=== PATIENT | female | born 1980 | race Caucasian/White ===

== ENCOUNTER 2023-05-30 18:51 | Emergency (ER) | payer OTHER, SELFPAY ==
--- NOTE | ~2023-05-30 | XR_ITS ---
Right Humerus Technique: AP and lateral views were obtained. Clinical History: Trauma Findings: No fracture or dislocation is seen. Osseous alignment is anatomic. Visualized joint spaces are grossly preserved. Soft tissues are unremarkable. Impression: Unremarkable examination. No fracture or dislocation. Reviewed, dictated and finalized at location . N CONTROL ELECTRONIC TECHNICIAN Impression: Unremarkable examination. No fracture or dislocation.
--- NOTE | ~2023-05-30 | XR_ITS ---
AP and oblique views of the right ribs, and PA and lateral chest radiographs Clinical History: Pain Findings: No rib fracture is seen. Osseous alignment is anatomic. Lungs are clear, without focal cons olidation or pleural effusion. Cardiomediastinal contour is within normal limits. Soft tissues are un remarkable. Impression: No rib fracture is seen. Reviewed, dictated and finalized at [facility]. N FOREMAN/SUPERINTENDANT Impression: No rib fracture is seen.
--- NOTE | ~2023-05-30 | XR_ITS ---
Right Shoulder Technique: AP and scapular Y views were obtained. Clinical History: Pain Findings: No fracture or dislocation is seen. Osseous alignment is anatomic. The glenohumeral and acr omioclavicular joint spaces are preserved. Soft tissues are unremarkable. Impression: Unremarkable right shoulder radiographs. Reviewed, dictated and finalized at [facility]. NTIST PROPAGATOR Impression: Unremarkable right shoulder radiographs.
--- NOTE | ~2023-05-30 | XR_ITS ---
Right elbow Technique: AP, oblique, and lateral views were obtained. Clinical History: Pain Findings: No acute fracture or dislocation is seen. Osseous alignment is anatomic. Joint spaces are p reserved. There is no displacement of the fat pads, and soft tissues are unremarkable. Impression: Unremarkable radiographs. Reviewed, dictated and finalized at location . HOLDER Impression: Unremarkable radiographs.
--- NOTE | ~2023-05-30 | XR_ITS ---
Right scapula Technique: AP and lateral views were obtained. Clinical History: Pain Findings: No fracture or dislocation is seen. Osseous alignment is anatomic. Visualized joint spaces are preserved. Soft tissues are unremarkable. Impression: No significant abnormality seen. Reviewed, dictated and finalized at location . SEWER Impression: No significant abnormality seen.
[2023-05-30 19:16] VITALS: BP 130/66; PULSE 65; RESP 20; TEMP 36.7; O2SAT 98
[2023-05-31 01:25] VITALS: BP 157/80; PULSE 62; RESP 14; TEMP 36.6; O2SAT 100
--- NOTE | 2023-05-31 02:13 | ED.UPPEXIN ---
HPI - Extremity Injury (Upper) General Chief Complaint: Extremity Injury, Upper Stated Complaint: RT shoulder injury Time Seen by Provider: 05/31/23 01:36 Source: patient Limitations: no limitations History of Present Illness HPI narrative: Patient is a 42-year-old female presents to the emergency department complaining of fall. Patient states around 3:00 p.m. today she is on metal steps and tripped fell backwards down the steps and bottom step with her right shoulder blade and has since been having pain in that area. Patient admits to being ambulatory since the event without any difficulty. Patient denies loss of consciousness or use of blood thinners or hitting her head. Patient states the most pain is in her right shoulder blade and and feels like a pressure and sharp sensation it radiates to her right shoulder and right upper arm. Patient denies history of injury to this area. Patient took a Tylenol for the pain. Patient denies pain anywhere else. Patient denies difficulty breathing, abdominal pain, vomiting, urinary incontinence stool incontinence, numbness, weakness, headache, paresthesias for alcohol use, illicit drug use. Patient states that the pain is worse when she tries to use her right shoulder. Patient states the pain is better when she is lying on her stomach. Related Data Allergies Allergy/AdvReac Type Severity Reaction Status Date / Time No Known Allergies Allergy Verified 05/30/23 19:26 Review of Systems Review of Systems: A 10 system review of systems was completed on the patient and is negative except for what is stated in the HPI. Nursing and ancillary documentation was reviewed. PMFSH Comments At time of signature, I have reviewed and agree with nursing past medical, surgical, social and family history unless otherwise noted. Please see the nursing chart for further information. There is no relevant family history pertinent to the presenting complaint. Exam Narrative: CONST: No acute distress. Well nourished. HENMT: Head is normocephalic and atraumatic. Moist mucous membranes. No posterior oropharynx erythema. EYES: No conjunctival icterus, injection, or pallor. PERRL. NECK: No meningeal signs. RESP: Able to speak in full sentences. Normal respiratory effort. CTAB. CARDIO: Regular rate. Regular rhythm. 2+ DP and radial pulses bilaterally. GI: Nondistended. No tenderness to palpation. Soft. : No CVA tenderness to palpation. SKIN: No rashes or lesions noted on exposed skin. NEURO: Oriented x3. Moves all extremities. EXTREM/MSK/BACK: No pedal edema. No midline vertebral tenderness to palpation or step-offs. Mild tenderness to palpation of the right scapula without overlying skin changes. Patient is able to flex and extend her right elbow and range of motion is intact of the right hand with glass vial bending conveyor feeder strength equal bilaterally in the upper extremities. Patient is not willing to range her right shoulder due to pain and causes in her shoulder blade. Chest wall is without palpable deformities or crepitus. No palpable deformities of the extremities. PSYCH: Normal affect. Course Vital Signs Vital signs: Vital Signs Temperature 98.0 F 05/30/23 19:16 Pulse Rate 65 05/30/23 19:16 Respiratory Rate 20 05/30/23 19:16 Blood Pressure 130/66 05/30/23 19:16 Pulse Oximetry 98 05/30/23 19:16 Oxygen Delivery Room Air 05/30/23 19:16 Temperature 97.5 F L 05/31/23 03:59 Pulse Rate 88 05/31/23 03:59 Respiratory Rate 16 05/31/23 03:59 Blood Pressure 138/77 05/31/23 03:59 Pulse Oximetry 99 05/31/23 03:59 Oxygen Delivery Room Air 05/30/23 19:16 MDM - Extremity Injury (Upper) MDM Narrative Medical decision making narrative: Patient presents with the above complaint. Initial vitals are remarkable for no significant abnormalities. Physical examination as noted above. Plan discussed: X-rays of the right shoulder, right elbow, ribs, scapula, morphine 4 mg IV
[2023-05-31] MEDS: MORPHINE SULFATE (*CRX) 4 MG/ML INJ IV PUSH (02:18)
[2023-05-31] MEDS: ONDANSETRON INJ 4 MG/2 ML VIAL IV PUSH (03:10)
[2023-05-31 03:59] VITALS: BP 138/77; PULSE 88; RESP 16; TEMP 36.4; O2SAT 99
== END 2023-05-31 04:01 | disposition home or self-care (01) ==
PROVIDERS: Emergency Provider Student in an Organized Health Care Education/Training Program
DX: S40.011A Contusion of right shoulder, initial encounter (principal); W10.9XXA Fall (on) (from) unspecified stairs and steps, initial encounter
CPT/HCPCS: 71046; 71100; 73010; 73030; 73060; 73080; 96374; 96375; 99284; A4565; J2270; J2405